=== PATIENT | male | born 1990 | race Caucasian/White ===

== ENCOUNTER → 2020-11-28 23:09 | Outpatient (CLI) | payer BC, SELFPAY ==
[2020-11-28 19:35] VITALS: BMI 39.9
[2020-11-28 23:28] LABS: Absolute Lymphocyte Count 1.97 X10^3/uL (0.83-4.51); Absolute Neutrophil Count 5.5 X10^3/uL (2.0-7.7); Basophil# 0.04 X10^3/uL; Basophil% 0.5 % (0-1); Eosinophil# 0.12 X10^3/uL; Eosinophils% 1.4 % (0-5); Hematocrit 47.1 % (40-54); Hemoglobin 14.9 g/dL (13.0-16.5); Lymphocyte # 1.97 X10^3/ul (0.83-4.51); Lymphocyte % 23.5 % (19-41); Mean Corp Hgb Conc 31.6 g/dL (32-36); Mean Corpuscular Hgb 27.3 pg (27.0-32.0); Mean Corpuscular Volume 86.3 fL (80-94); Mean Platelet Vol. 10.4 fl (6.2-12.0); Monocyte# 0.74 X10^3/uL; Monocyte% 8.8 % (0-10); NRBC Flagged by Analyzer 0 % (0-5); Neutrophil # 5.48 X10^3/uL (2.7-7.7); Neutrophil % 65.6 % (47-70); Platelet Count 344 K/mm3 (150-450); RBC Distribution Width CV 13.9 % (11.6-14.6); RBC Distribution Width SD 44.2 fl (35.1-43.9); Red Blood Count 5.46 M/mm3 (4.6-6.2); White Blood Count 8.4 K/mm3 (4.4-11.0)
[2020-11-29 00:03] LABS: AST(SGOT) 52 U/L (15-37); Alanine Aminotransfer ALT/SGPT 47 U/L (16-61); Albumin, Serum 4.3 g/dL (3.2-5.0); Alkaline Phosphatase 100 U/L (45-117); Anion Gap 6 (5-15); BUN 13 mg/dL (7-18); BUN/Creat Ratio 11.9 RATIO (10-20); CRP, High Sensitivity Cardiac 3.32 mg/L; Calcium,Total 9.6 mg/dL (8.5-10.1); Chloride 104 mmol/L (98-107); Cholesterol 196 mg/dL (200); Creatinine, Serum 1.09 mg/dL (0.70-1.30); EST Glomerular Filtration Rate 84 mL/min (>60); Est Glom Filt Rate - Afr Amer 102 mL/min (>60); Globulin 4.1 g/dL (2.2-4.2); Glucose 48 mg/dL (74-106); High Density Lipoprotein 69 mg/dL; Magnesium 2.4 mg/dL (1.6-2.6); Potassium 3.8 mmol/L (3.5-5.1); Protein, Total 8.4 g/dL (6.4-8.2); Sodium Level 140 mmol/L (136-145); Triglycerides 65 mg/dL; Very Low Density Lipoprotein 13 mg/dL (5-40)
== END ==
PROVIDERS: Referring Provider Nurse Practitioner; Visit Provider Nurse Practitioner
DX: E78.00 Pure hypercholesterolemia, unspecified (principal); G25.81 Restless legs syndrome
CPT/HCPCS: 80053; 80061; 83735; 85025; 86141

== ENCOUNTER → 2022-05-29 | Outpatient (CLI) | payer BC, SELFPAY ==
[2022-05-29 22:37] LABS: AST(SGOT) 34 U/L (15-37); Alanine Aminotransfer ALT/SGPT 50 U/L (16-61); Albumin, Serum 3.9 g/dL (3.2-5.0); Alkaline Phosphatase 89 U/L (45-117); Anion Gap 9 (5-15); BUN 15 mg/dL (7-18); BUN/Creat Ratio 15.2 RATIO (10-20); Calcium,Total 9.2 mg/dL (8.5-10.1); Chloride 102 mmol/L (98-107); Cholesterol 205 mg/dL (200); Creatinine, Serum 0.98 mg/dL (0.70-1.30); EST Glomerular Filtration Rate 94 mL/min (>60); Est Glom Filt Rate - Afr Amer 114 mL/min (>60); Globulin 4.1 g/dL (2.2-4.2); Glucose 81 mg/dL (74-106); High Density Lipoprotein 47 mg/dL; Potassium 3.9 mmol/L (3.5-5.1); Sodium Level 139 mmol/L (136-145); Triglycerides 168 mg/dL; Very Low Density Lipoprotein 34 mg/dL (5-40)
[2022-05-29 23:05] LABS: Absolute Lymphocyte Count 1.94 X10^3/uL (0.83-4.51); Absolute Neutrophil Count 3.1 X10^3/uL (2.0-7.7); Basophil# 0.04 X10^3/uL; Basophil% 0.7 % (0-1); Eosinophil# 0.15 X10^3/uL; Eosinophils% 2.6 % (0-5); Hematocrit 46.7 % (40-54); Hemoglobin 14.8 g/dL (13.0-16.5); Lymphocyte # 1.94 X10^3/ul (0.83-4.51); Lymphocyte % 33.7 % (19-41); Mean Corp Hgb Conc 31.7 g/dL (32-36); Mean Corpuscular Hgb 25.7 pg (27.0-32.0); Mean Corpuscular Volume 81.2 fL (80-94); Mean Platelet Vol. 10.1 fl (6.2-12.0); Monocyte# 0.54 X10^3/uL; Monocyte% 9.4 % (0-10); NRBC Flagged by Analyzer 0 % (0-5); Neutrophil # 3.07 X10^3/uL (2.7-7.7); Neutrophil % 53.4 % (47-70); Platelet Count 359 K/mm3 (150-450); RBC Distribution Width CV 13.7 % (11.6-14.6); RBC Distribution Width SD 39.8 fl (35.1-43.9); Red Blood Count 5.75 M/mm3 (4.6-6.2); White Blood Count 5.8 K/mm3 (4.4-11.0)
== END | disposition home or self-care (01) ==
PROVIDERS: Visit Provider Nurse Practitioner
DX: Z00.00 Encounter for general adult medical examination without abnormal findings (principal)
CPT/HCPCS: 80053; 80061; 85025

== ENCOUNTER 2023-01-25 18:42 | Emergency (ER) | payer BC, SELFPAY ==
[2023-01-25 18:42] VITALS: BP 149/71; PULSE 88; RESP 18; TEMP 36.6; O2SAT 99; BMI 45.3
--- NOTE | 2023-01-25 18:54 | RAD_ITS ---
INDICATION: ankle injury EXAMINATION/TECHNIQUE: X-RAY - RIGHT XR Ankle Min 3 Views 3 VIEWS COMPARISON: FINDINGS: No acute fracture or dislocation. No destructive bone changes. Joint spaces are well-maintained. Normal alignment. Soft tissues are unremarkable. No radiopaque foreign body or soft tissue gas. RAD/Ankle min 3 Views IMPRESSION: Negative. Electronically Signed: Richa Leon MD at 19:48 EDT Reading Location ID and State: [id number] / Tel , Service support ,
--- NOTE | 2023-01-25 19:31 | EDS_ITS ---
HPI History of Present Illness Chief Complaint: Lower Extremity Injury Informant: patient Narrative Narrative: Several hours ago patient walked into his garage and stepped on one of his children's toys, forcibly inverting his right ankle and falling very hard, hea ring some cracking. He is able to bear weight but it really hurts to do so. Pain mostly in the lateral aspect of the foot. PFSH PFSH Medical History Normal echocardiogram Viral meningitis Home Medications multivitamin (Daily Multi-Vitamin tablet) 1 tab PO DAILY 11/29/20 [History Last Taken Unknown] naproxen sodium 220 mg tablet (Aleve) 220 mg PO BID PRN 11/29/20 [History Last Taken Unknown] potassium chloride 10 mEq tablet,extended release 10 meq PO DAILY 11/29/20 [History Last Taken Unknown] Allergy/AdvReac Type Severity Reaction Status Date / Time No Known Allergies Allergy Verified 01/25/23 18:42 Family History (Updated 06/01/22 @ 17:15 by Julia Sandhu NP, ACCIDENT INVESTIGATOR-C) Father , age 51 CAD (coronary artery disease) Heart disease Myocardial infarction Sudden cardiac Hypertension Mother Breast cancer Hypertension Uncle SVT (supraventricular tachycardia) Uncle Myocardial infarction Surgical History H/O gastric bypass H/O wisdom tooth extraction Social History adopted: No household members: spouse number of children: 0 current occupational status: employed current occupation: [employer] current occupational exposures/hazards: Yes sexually active: Yes Smoking Status: Former smoker quit date: 05/18/18 pack-years: 365 well-balanced diet: rarely or never eating out: 4 or more times/week during the past year weight has: other ROS ROS ED Constitutional Constitutional ED: Denies chills or fever(s) Musculoskeletal Musculoskeletal: Reports extremity pain; Denies neck pain Integumentary Denies Abrasions, rash or wounds Neurologic Neurologic: Denies paresthesias or weakness EXAM Physical Exam Const Vital Signs: 01/25/23 18:42 Temperature 97.8 F Temperature Source Temporal Pulse Rate 88 Respiratory Rate 18 Blood Pressure 149/71 H Blood Pressure Mean 97 Pulse Ox 99 Oxygen Delivery Method Room Air Positive well nourished and well developed General Appearance ED: well developed and NAD Neck full ROM and supple Back/Spine normal ROM and normal to inspection Extremity Extremity Narrative: Swelling, ecchymosis, tenderness to the peroneal aspect of the right midfoot. No crepitance. No deformities. No tenderness at the malleoli/ankle or the proximal fibula. Nontender to base of the fifth metatarsal, and distal to the ecchymotic area at the distal metatarsals or toes. Limited range of motion of t he ankle due to pain but able. Neuro oriented x3, no focal motor deficits and no sensory deficits noted Sensorium / Orientation: alert Psych mental status grossly normal and thought process normal Skin no wounds Rashes: no rashes MDM MDM Radiography Diagnostic Testing: Clinical Impression(s) from Imaging Studies Ankle X-Ray 01/25/23 18:54 IMPRESSION: Negative. Electronically Signed: Richa Leon MD at 19:48 EDT Reading Location ID and State: Richard Early MD Tel , Service support , Foot X-Ray 01/25/23 19:50 IMPRESSION: Negative. Electronically Signed: Richa Leon MD at 20:50 EDT Reading Location ID and State: [place] Early MD Tel , Service support , Discharge Plan Triage Chief Complaint: Lower Extremity Injury ED Provider: Santana Francisco Dx/Rx/DC Orders Clinical Impression: Sprain of ankle, right Instructions: ED Ankle Sprain (Adult) Prescriptions: No Action potassium chloride 10 mEq tablet extended release 10 meq PO DAILY naproxen sodium [Aleve] 220 mg tablet 220 mg PO BID PRN multivitamin [Daily Multi-Vitamin] Tablet 1 tab PO DAILY Primary Care Provider: Julia Sandhu ACCIDENT INVESTIGATOR Referrals: Willi Sainz DPM [Med Staff - Active Staff] - 1-2 Weeks (If not improving) Activity Restrictions/Additional Instructions: Ice and elevate when resting. Ibuprofen or Aleve daily for the next week, or as needed. Disposition Disposition: Home, Self Care
--- NOTE | 2023-01-25 19:50 | RAD_ITS ---
INDICATION: injury EXAMINATION/TECHNIQUE: X-RAY - RIGHT XR Foot Min 3 Views 3 VIEWS COMPARISON: FINDINGS: No acute fracture or dislocation. No destructive bone changes. Joint spaces are well-maintained. Normal alignment. Soft tissues are unremarkable. No radiopaque foreign body or soft tissue gas. RAD/Foot min 3 Views IMPRESSION: Negative. Electronically Signed: Richa Leon MD at 20:50 EDT Reading Location ID and State: [id number] / Tel , Service support ,
[2023-01-25] MEDS: Ibuprofen 600 MG Tablet PO (20:46)
--- NOTE | 2023-01-25 21:39 | ED.RN ---
PT WALKING HALLS, WANTING TO KNOW WHEN HE CAN LEAVE. PT ANNOYED, STATING HE HAS BEEN HERE ALMOST 4 HOURS AND ONLY GOT MOTRIN FOR PAIN RELIEF. EDUCATED ON NO FRACTURE AND APPROPRIATENESS OF NARCOTICS. ASKED PT ABOUT EXPECTATIONS AND HOW THIS NURSE COULD HELP, HE SNAPPED I GUESS NOTHING, I'LL JUST LEAVE IN PAIN. PT AMBULATED OUT OF DEPARTMENT WITHOUT DIFFICULTY
== END 2023-01-25 21:41 | disposition home or self-care (01) ==
PROVIDERS: Emergency Provider Emergency Medicine; PCP Nurse Practitioner; Visit Provider Emergency Medicine
DX: S93.401A Sprain of unspecified ligament of right ankle, initial encounter (principal); Z87.891 Personal history of nicotine dependence; X58.XXXA Exposure to other specified factors, initial encounter
CPT/HCPCS: 73610; 73630; 99283